=== PATIENT | male | born 1985 | race Caucasian/White ===

== ENCOUNTER 2016-08-13 15:03 | Emergency (ER) | payer OTHER, SELFPAY ==
--- NOTE | 2016-08-17 18:55 | ER ---
ADMIT: 08/13/2016 RM/LOC: ER [facility] MR#: [id number] [address] 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 He states he normally drinks about 8 beers a day, 2 to 3 shots of whiskey, and also a few shots of vodka. He has been trying to detox himself. He is either on day 3 or day 4, and he says he is having auditory hallucinations. He does not want to go to any kind of detox facility. He would just like something to help him with the hallucinations. He does not have a history of having alcoholic withdrawal seizures, and he has been able to keep fluids down. He is alert and oriented. I did speak at length with him about detoxing from alcohol. I gave him the brochures to the adult treatment center here in [place] and also to [facility]. I wrote a prescription for Ativan. He thinks almost on day 4 of being without alcohol, and he feels like his symptoms are actually getting better except for the hallucinations. He currently is with his mother, who plans to stay and be with him. Please see my T-sheet. ANDREA James / Darwin Lind MD / ivanal JOB #: [id number] CC: Darwin Lind MD, Attending Physician Silviano Goode MD, Family Physician
== END 2016-08-13 16:11 | disposition home or self-care (01) ==
LOC: ER 15:03
DX: F10.20 Alcohol dependence, uncomplicated (principal); R44.0 Auditory hallucinations; F17.210 Nicotine dependence, cigarettes, uncomplicated; Z79.899 Other long term (current) drug therapy; Z88.7 Allergy status to serum and vaccine